=== PATIENT | female | born 1955 | race Caucasian/White ===

== ENCOUNTER → 2017-03-29 | Outpatient (CLI) | payer OTHER | LOC: CIMAGING 09:33 | DX: Z12.31 Encounter for screening mammogram for malignant neoplasm of breast (principal) | CPT/HCPCS: G0202 ==

== ENCOUNTER → 2017-05-21 | Outpatient (CLI) | payer OTHER | LOC: FIMAGING 11:01 | PROVIDERS: ATTEND Family Medicine | DX: Z13.820 Encounter for screening for osteoporosis (principal); Z82.62 Family history of osteoporosis ==

== ENCOUNTER → 2018-05-30 | Outpatient (CLI) | payer OTHER | LOC: CIMAGING 14:30 | PROVIDERS: ATTEND Family Medicine | DX: Z12.31 Encounter for screening mammogram for malignant neoplasm of breast (principal) ==

== ENCOUNTER 2019-04-03 00:28 | Inpatient (IN) | payer OTHER ==
[2019-04-03] MEDS ORDERED: NS 1,000 ML IV ONE ×2 (01:05→04:01)
--- NOTE | 2019-04-03 01:08 | EDPHY ---
H & P Stated Complaint: abd pain, UTI s/sx, nausea x3 days Time Seen by Provider: 04/03/19 00:34 HPI/ROS: HPI The patient presents with nausea vomiting fever and chills. Symptoms began about 7 days ago with UTI type symptoms. Patient had painful urination and frequent urination. She took azo [id number] for this. However over the last 3 days she has developed severe nausea, fever, shaking chills with occasional vomiting. She does have pains in her back as well bilaterally. She was seen at [facility] earlier today where she was diagnosed with pyelonephritis, given IV fluids, Zofran, 1 g ceftriaxone with improvement in her symptoms. However, she returned home and had ongoing nausea, vomiting, general malaise so comes to the emergency department. She has a history of frequent urinary tract infection in her younger years. She has been feeling fatigued lately though attributes this to change in her hormone medication with her insurance changing.. REVIEW OF SYSTEMS 10 systems were reviewed and negative with the exception of the elements mentioned in the history of present illness. PMHx: Hypothyroidism, hypertension Soc Hx: Here with her partner PHYSICAL General Appearance: Alert, uncomfortable appearing Eyes: Pupils equal and round no pallor or injection ENT, Mouth: Mucous membranes moist Respiratory: There are no retractions, lungs are clear to auscultation Cardiovascular: Regular rate and rhythm Gastrointestinal: Abdomen is soft and non-tender, no masses, bowel sounds normal , no CVA tenderness Neurological: A&O, moves all extremities Skin: Warm and dry, no rashes Musculoskeletal: Neck is supple non tender Extremities: symmetrical, full range of motion Psychiatric: Patient is oriented X 3, there is no agitation Source: Patient Exam Limitations: No limitations - Personal History Current Tetanus/Diphtheria Vaccine: Yes - Medical/Surgical History Hx Asthma: No Hx Chronic Respiratory Disease: No Hx Diabetes: No Hx Cardiac Disease: No Hx Renal Disease: No Hx Cirrhosis: No Hx Alcoholism: No Hx HIV/AIDS: No Hx Splenectomy or Spleen Trauma: No Other PMH: hypothyroid, HTN - Social History Smoking Status: Never smoked Constitutional: Initial Vital Signs Temperature (C) 38.4 C H 04/03/19 00:28 Heart Rate 95 04/03/19 00:28 Respiratory Rate 20 04/03/19 00:28 Blood Pressure 128/60 H 04/03/19 00:28 O2 Sat (%) 90 L 04/03/19 00:28 O2 Delivery Mode Nasal Cannula O2 (L/minute) 4 Allergies/Adverse Reactions: No Known Allergies Allergy (Unverified 04/03/19 00:31) Home Medications: Medication Instructions Recorded Levothyroxine 04/03/19 Triamterene 04/03/19 Medical Decision Making - Diagnostics Imaging Results: CT abdomen pelvis with IV contrast demonstrates austin nephric stranding seen involving the left kidney with heterogeneous enhancement of the upper pole, consider pyelonephritis, no hydronephrosis is seen, no stones are seen, bladder is decompressed with some circumferential wall thickening, consider cystitis, interpreted by direct Radiology. Imaging: I viewed and interpreted images myself Differential Diagnosis: 63-year-old female, diagnosed earlier today with pyelonephritis at urgent care, treated with ceftriaxone, fluids, Zofran now presents with nausea, vomiting, malaise, fevers. Suspect pyelonephritis, complicated because patient has had to return to the emergency department. Will obtain basic labs, give IV fluids, symptomatic relief. Patient was given IV fluids, Zofran. She was not given additional antibiotics as she had received ceftriaxone less than 12 hr prior to her time in the emergency department. She does have a leukocytosis with a left shift. Her UA demonstrated sterile pyuria, because of this CT scan of abdomen pelvis was obtained which did indicate left-sided pyelonephritis with no other intra- abdominal findings. Urine culture was sent. Case was discussed with Dr. Carter of the hospitalist service. As we plan to admit the patient given failed outpatient management of pyelonephritis. - Data Points Laboratory Results: Laboratory Results 04/03/19 01:25 04/03/19 01:25 04/03/19 04/03/19 04/03/19 02:35 01:25 01:25 WBC 12.90 10^3/uL H 10^3/uL (3.80-9.50) RBC 3.69 10^6/uL L 10^6/uL (4.18-5.33) Hgb 11.6 g/dL L g/dL (12.6-16.3) Hct 32.0 % L % (38.0-47.0) MCV 86.7 fL fL (81.5-99.8) MCH 31.4 pg pg (27.9-34.1) MCHC 36.3 g/dL g/dL (32.4-36.7) RDW 12.6 % % (11.5-15.2) Plt Count 161 10^3/uL 10^3/uL (150-400) MPV 9.7 fL fL (8.7-11.7) Neut % (Auto) Not Reported Lymph % (Auto) Not Reported [place] % (Auto) Not Reported Eos % (Auto) Not Reported Baso % (Auto) Not Reported Nucleat RBC Rel Count Not Reported Absolute Neuts (auto) Not Reported Absolute Lymphs (auto) Not Reported Absolute Monos (auto) Not Reported Absolute Eos (auto) Not Reported Absolute Basos (auto) Not Reported Absolute Nucleated RBC Not Reported Immature Gran % Not Reported Seg Neutrophils % 67.0 % % Band Neutrophils % 13.0 % % Lymphocytes % 11.0 % % Monocytes % 8.0 % % Eosinophils % 0.0 % % Basophils % 0.0 % % Metamyelocytes % 0.0 % % Myelocytes % 0.0 % % Promyelocytes % 1.0 % % Blast Cells % 0.0 % % Immature Gran # Not Reported Absolute Seg Neuts 8.64 10^3/uL H 10^3/uL (1.70-6.50) Absolute Band Neuts 1.68 10^3/uL H 10^3/uL (0.00-0.70) Absolute Lymphocytes 1.42 10^3/uL 10^3/uL (1.00-3.00) Absolute Monocytes 1.03 10^3/uL H 10^3/uL (0.30-0.80) Absolute Eosinophils 0.00 10^3/uL L 10^3/uL (0.03-0.40) Absolute Basophils 0.00 10^3/uL L 10^3/uL (0.02-0.10) Absolute Metamyelocyte 0.00 10^3/mL 10^3/mL (0.00-0.00) Absolute Myelocytes 0.00 10^3/mL 10^3/mL (0.00-0.00) Absolute Promyelocytes 0.13 10^3/uL H 10^3/uL (0.00-0.00) Absolute Plasma Cells 0.00 10^3/uL 10^3/uL (0.00-0.00) Nucleated RBCs 0 /100 WBC /100 WBC (0-0) Absolute Blast Cells 0.00 10^3/uL 10^3/uL (0.00-0.00) Plasma Cells % 0.0 % % Toxic Granulation PRESENT H Toxic Vacuolation PRESENT H Platelet Estimate ADEQUATE (ADEQ) Smear Review By Pending Sodium 135 mEq/L mEq/L (135-145) Potassium 3.3 mEq/L L mEq/L (3.5-5.2) Chloride 98 mEq/L mEq/L (97-110) Carbon Dioxide 27 mEq/l mEq/l (22-31) Anion Gap 10 mEq/L mEq/L (6-14) BUN 18 mg/dL mg/dL (7-23) Creatinine 0.8 mg/dL mg/dL (0.6-1.0) Estimated GFR > 60 Glucose 121 mg/dL H mg/dL (70-100) Calcium 8.2 mg/dL L mg/dL (8.5-10.4) Total Bilirubin 0.7 mg/dL mg/dL (0.1-1.4) AST 58 IU/L H IU/L (14-46) ALT 69 IU/L H IU/L (9-52) Alkaline Phosphatase 96 IU/L IU/L (38-126) Total Protein 5.9 g/dL L g/dL (6.3-8.2) Albumin 3.5 g/dL g/dL (3.5-5.0) Urine Color YELLOW Urine Appearance HAZY Urine pH 5.0 (5.0-7.5) Ur Specific [place] 1.025 (1.002-1.030) Urine Protein 2+ H (NEGATIVE) Urine Ketones TRACE H (NEGATIVE) Urine Blood 1+ H (NEGATIVE) Urine Nitrate NEGATIVE (NEGATIVE) Urine Bilirubin NEGATIVE (NEGATIVE) Urine Urobilinogen NEGATIVE EU EU (0.2-1.0) Ur Leukocyte Esterase 1+ H (NEGATIVE) Urine RBC 10-15 /hpf H /hpf (0-3) Urine WBC 50-182 /hpf H /hpf (0-3) Ur Epithelial Cells TRACE /lpf /lpf (NONE-1+) Urine Mucus TRACE /lpf /lpf (NONE-1+) Urine Glucose NEGATIVE (NEGATIVE) Medications Given: Potassium Chloride/Sodium Chloride (Ns W/ 20 Kcl/L) 1,000 mls @ 100 mls/hr IV CONT VIV Stop: 09/30/19 04:29 Last Admin: 04/03/19 05:41 Dose: 1,000 mls Discontinued Medications Sodium Chloride (Ns) 1,000 mls @ 0 mls/hr IV EDNOW ONE; Wide Open PRN Reason: Protocol Stop: 04/03/19 01:06 Last Admin: 04/03/19 01:26 Dose: 1,000 mls Sodium Chloride (Ns) 1,000 mls @ 0 mls/hr IV EDNOW ONE; Wide Open PRN Reason: Protocol Stop: 04/03/19 04:02 Last Admin: 04/03/19 04:15 Dose: 1,000 mls Ketorolac Tromethamine (Toradol) 15 mg IVP EDNOW ONE Stop: 04/03/19 01:22 Last Admin: 04/03/19 01:27 Dose: 15 mg Ondansetron HCl (Zofran) 4 mg IVP EDNOW ONE Stop: 04/03/19 01:22 Last Admin: 04/03/19 01:25 Dose: 4 mg Departure - Departure Disposition: [facility] In[facility] Acute Clinical Impression: Acute pyelonephritis Condition: Fair
[2019-04-03] MEDS ORDERED: KETOROLAC 15 MG/1 ML SDV IVP ONE (01:21)
[2019-04-03] MEDS ORDERED: ONDANSETRON 4 MG/2 ML VIAL IVP ONE (01:21)
[2019-04-03] MEDS ORDERED: ONDANSETRON 4 MG/2 ML VIAL ONE (01:21)
[2019-04-03 01:35] LABS: PLATELET COUNT 161 10^3/uL (150-400)
[2019-04-03] MEDS ORDERED: IOPAMIDOL (ISOVUE-300) 100 ML BTL ONE (03:54)
[2019-04-03] MEDS ORDERED: ONDANSETRON DISINTEGRATING 4 MG TAB PO PRN (04:25)
[2019-04-03] MEDS ORDERED: LORazepam 2 MG/ML INJ IVP PRN (04:25)
[2019-04-03] MEDS ORDERED: HYDROCODONE/APAP 5/325 TAB PO PRN (04:25)
[2019-04-03] MEDS ORDERED: ACETAMINOPHEN 650 MG SUPP PR PRN (04:25)
[2019-04-03] MEDS ORDERED: PROMETHAZINE HCL 25 MG/ML INJ IVP PRN (04:25)
[2019-04-03] MEDS ORDERED: ONDANSETRON 4 MG/2 ML VIAL IVP PRN ×2 (04:25→14:57)
--- NOTE | 2019-04-03 05:07 | PDGENHP ---
History and Physical - Chief Complaint Fevers, chills, nausea vomiting, abdominal pain and back pain - History of Present Illness Source-patient provides history appears reliable. Her is bedside supplements details. EMR was reviewed and case discussed with ED provider. HPI-this is a pleasant 63-year-old female with past medical history significant for hypothyroidism, menopausal flushing, HTN, reported history of UTIs remotely who presents emergency department today with complaints of progressively worsening nausea vomiting chills and fever. Patient reports that she developed symptoms of UTI with dysuria occasional hematuria and frequency a week ago. She had been taking azo [id number] for her symptom control. She had been traveling in [facility] and had not yet followed up with primary care provider. Yesterday she went to urgent care near and was diagnosed with pyelonephritis. She reports that laboratory studies in urine was reported to be consistent with UTI. She and were advised that the culture with take 3 days to resolve. She was given a dose of IV Rocephin at the urgent care facility. She is also given a prescription for Levaquin to start later this morning. Patient returned home she was feeling actually quite well at time of discharge however she has began to have worsening abdominal pain distension midline mostly upper abdomen. She also developed some nausea and vomiting. She denies any hematemesis and reports that was more bile. She also reports some diarrhea type symptoms without any melena or hematochezia. No reported sick contacts. Patient also notes she has been experiencing fatigue for the past 1 month since she tapered off of her hormone replacement therapy. Additionally since she has been ill last few days patient reports she has not been sleeping very well. She also notes left-sided back pain that is mild to moderate in severity worse with movement. Patient reports that she previously had a history of recurrent UTIs in her youth. Review of EMR shows that patient last had urine cultures in March of 2018 that showed 50-60 K CFU of non lactose fermenting negative Gram rods. These were not sent for additional identification for sensitivities. History Information - Allergies/Home Medication List Allergies/Adverse Reactions: No Known Allergies Allergy (Unverified 04/03/19 00:31) Home Medications: Levothyroxine 04/03/19 [Last Taken Unknown] Triamterene 04/03/19 [Last Taken Unknown] I have personally reviewed and updated: family history, medical history, social history, surgical history - Past Medical History hypertension Additional medical history: HTN, hypothyroidism, recurrent UTIs and youth. Patient also reports that between the age of 4 and 10 she was followed by Urology and had her "bladder stretched" - Surgical History Additional surgical history: Tipped uterus repair, x2, knee arthroscopy for meniscal repair, bladder surgery for "stretching" age 4 - Family History Additional family history: Negative family history for any urinary or kidney dysfunction. - Social History Smoking Status: Never smoked Alcohol Use: None Drug Use: None Additional social history: Patient is . is at bedside. Cor status-full. Patient has a living will. Review of Systems Review of Systems: ROS: 10pt was reviewed & negative except for what was stated in HPI & below Constitutional: Reports: chills, fever, malaise EENMT: Reports: no symptoms Cardiac: Reports: no symptoms Respiratory: Reports: no symptoms Gastrointestinal: Reports: vomitting, abdominal pain, abdominal distention, diarrhea, nausea. Denies: black stools, rectal bleeding Genitourinary: Reports: dysuria (Resolved since 2 days ago), flank pain (Left flank pain), frequency, hematuria (Occasional) Muscolosketal: Reports: no symptoms Skin: Reports: no symptoms Neurological: Reports: no symptoms Hematologic/Lymphatic: Reports: no symptoms Physical Exam Physical Exam: Selected Entries 04/03/19 00:28 Blood Pressure Automatic Method Heart Rate 95 Respiratory 20 Rate O2 Sat (%) 90 L Temperature (C) 38.4 C H Blood Pressure 128/60 H Mean Arterial 82 Pressure (MAP) O2 Delivery Room Air Mode Temperature Oral Source Temp Pulse Resp BP Pulse Ox 36.9 C 61 16 104/51 L 96 04/03/19 04:47 04/03/19 04:15 04/03/19 04:15 04/03/19 04:15 04/03/19 04:15 O2 (L/minute) 2 Constitutional: no apparent distress, appears nourished, uncomfortable, other ( NAD. Patient lays quietly in bed does appear fatigued and acutely ill but nontoxic. at bedside.) Eyes: PERRL (Decreased reactivity to light bilaterally and symmetric.), anicteric sclera, EOMI, No scleral injection Ears, Nose, Mouth, Throat: dry mucous membranes, other (No nasal discharge.), No poor dentition Cardiovascular: regular rate and rhythym (Extra regular beat noted when patient was sitting up. Resolved with lying down.), no murmur, rub, or gallop, No pulses symmetric bilaterally, No tachycardia, No edema Peripheral Pulses: 2+: dorsalis-pedis (R), dorsalis-pedis (L) Respiratory: no respiratory distress, no rales or rhonchi, clear to auscultation , other, No respiratory distress Gastrointestinal: normoactive bowel sounds, no palpable masses, distension, other (Abdomen is soft and distended. Patient with some mild tenderness with palpation to the midline abdomen. No rebound or guarding.), No bella's sign, No guarding, No rebound Genitourinary: no bladder tenderness, No dior in urethra Skin: warm, normal color, no rashes or abrasions Musculoskeletal: full muscle strength, no muscle tenderness, other (Patient sits up independently. Moves all extremities.) Neurologic: AAOx3, sensation intact bilaterally, other (Grossly nonfocal exam.) , No facial droop Psychiatric: interacting appropriately, not anxious, not encephalopathic, thought process linear, other (Thought process content and questions appropriate. Patient is pleasant and cooperative.) Lab Data & Imaging Review 04/03/19 01:25 04/03/19 01:25 WBC 12.90 10^3/uL (3.80-9.50) H 04/03/19 01:25 RBC 3.69 10^6/uL (4.18-5.33) L 04/03/19 01:25 Hgb 11.6 g/dL (12.6-16.3) L 04/03/19 01:25 Hct 32.0 % (38.0-47.0) L 04/03/19 01:25 MCV 86.7 fL (81.5-99.8) 04/03/19 01:25 MCH 31.4 pg (27.9-34.1) 04/03/19 01:25 MCHC 36.3 g/dL (32.4-36.7) 04/03/19 01:25 RDW 12.6 % (11.5-15.2) 04/03/19 01:25 Plt Count 161 10^3/uL (150-400) 04/03/19 01:25 MPV 9.7 fL (8.7-11.7) 04/03/19 01:25 Neut % (Auto) Not Reported 04/03/19 01:25 Lymph % (Auto) Not Reported 04/03/19 01:25 [place] % (Auto) Not Reported 04/03/19 01:25 Eos % (Auto) Not Reported 04/03/19 01:25 Baso % (Auto) Not Reported 04/03/19 01:25 Nucleat RBC Rel Count Not Reported 04/03/19 01:25 Absolute Neuts (auto) Not Reported 04/03/19 01:25 Absolute Lymphs (auto) Not Reported 04/03/19 01:25 Absolute Monos (auto) Not Reported 04/03/19 01:25 Absolute Eos (auto) Not Reported 04/03/19 01:25 Absolute Basos (auto) Not Reported 04/03/19 01:25 Absolute Nucleated RBC Not Reported 04/03/19 01:25 Immature Gran % Not Reported 04/03/19 01:25 Seg Neutrophils % 67.0 % 04/03/19 01:25 Band Neutrophils % 13.0 % 04/03/19 01:25 Lymphocytes % 11.0 % 04/03/19 01:25 Monocytes % 8.0 % 04/03/19 01:25 Eosinophils % 0.0 % 04/03/19 01:25 Basophils % 0.0 % 04/03/19 01:25 Metamyelocytes % 0.0 % 04/03/19 01:25 Myelocytes % 0.0 % 04/03/19 01:25 Promyelocytes % 1.0 % 04/03/19 01:25 Blast Cells % 0.0 % 04/03/19 01:25 Immature Gran # Not Reported 04/03/19 01:25 Absolute Seg Neuts 8.64 10^3/uL (1.70-6.50) H 04/03/19 01:25 Absolute Band Neuts 1.68 10^3/uL (0.00-0.70) H 04/03/19 01:25 Absolute Lymphocytes 1.42 10^3/uL (1.00-3.00) 04/03/19 01:25 Absolute Monocytes 1.03 10^3/uL (0.30-0.80) H 04/03/19 01:25 Absolute Eosinophils 0.00 10^3/uL (0.03-0.40) L 04/03/19 01:25 Absolute Basophils 0.00 10^3/uL (0.02-0.10) L 04/03/19 01:25 Absolute Metamyelocyte 0.00 10^3/mL (0.00-0.00) 04/03/19 01:25 Absolute Myelocytes 0.00 10^3/mL (0.00-0.00) 04/03/19 01:25 Absolute Promyelocytes 0.13 10^3/uL (0.00-0.00) H 04/03/19 01:25 Absolute Plasma Cells 0.00 10^3/uL (0.00-0.00) 04/03/19 01:25 Nucleated RBCs 0 /100 WBC (0-0) 04/03/19 01:25 Absolute Blast Cells 0.00 10^3/uL (0.00-0.00) 04/03/19 01:25 Plasma Cells % 0.0 % 04/03/19 01:25 Toxic Granulation PRESENT H 04/03/19 01:25 Toxic Vacuolation PRESENT H 04/03/19 01:25 Platelet Estimate ADEQUATE (ADEQ) 04/03/19 01:25 VBG Lactic Acid 0.8 mmol/L (0.7-2.1) 04/03/19 04:15 Sodium 135 mEq/L (135-145) 04/03/19 01:25 Potassium 3.3 mEq/L (3.5-5.2) L 04/03/19 01:25 Chloride 98 mEq/L (97-110) 04/03/19 01:25 Carbon Dioxide 27 mEq/l (22-31) 04/03/19 01:25 Anion Gap 10 mEq/L (6-14) 04/03/19 01:25 BUN 18 mg/dL (7-23) 04/03/19 01:25 Creatinine 0.8 mg/dL (0.6-1.0) 04/03/19 01:25 Estimated GFR > 60 04/03/19 01:25 Glucose 121 mg/dL (70-100) H 04/03/19 01:25 Calcium 8.2 mg/dL (8.5-10.4) L 04/03/19 01:25 Total Bilirubin 0.7 mg/dL (0.1-1.4) 04/03/19 01:25 AST 58 IU/L (14-46) H 04/03/19 01:25 ALT 69 IU/L (9-52) H 04/03/19 01:25 Alkaline Phosphatase 96 IU/L (38-126) 04/03/19 01:25 Total Protein 5.9 g/dL (6.3-8.2) L 04/03/19 01:25 Albumin 3.5 g/dL (3.5-5.0) 04/03/19 01:25 Urine Color YELLOW 04/03/19 02:35 Urine Appearance HAZY 04/03/19 02:35 Urine pH 5.0 (5.0-7.5) 04/03/19 02:35 Ur Specific [place] 1.025 (1.002-1.030) 04/03/19 02:35 Urine Protein 2+ (NEGATIVE) H 04/03/19 02:35 Urine Ketones TRACE (NEGATIVE) H 04/03/19 02:35 Urine Blood 1+ (NEGATIVE) H 04/03/19 02:35 Urine Nitrate NEGATIVE (NEGATIVE) 04/03/19 02:35 Urine Bilirubin NEGATIVE (NEGATIVE) 04/03/19 02:35 Urine Urobilinogen NEGATIVE EU (0.2-1.0) 04/03/19 02:35 Ur Leukocyte Esterase 1+ (NEGATIVE) H 04/03/19 02:35 Urine RBC 10-15 /hpf (0-3) H 04/03/19 02:35 Urine WBC 50-182 /hpf (0-3) H 04/03/19 02:35 Ur Epithelial Cells TRACE /lpf (NONE-1+) 04/03/19 02:35 Urine Mucus TRACE /lpf (NONE-1+) 04/03/19 02:35 Urine Glucose NEGATIVE (NEGATIVE) 04/03/19 02:35 Imaging Review: Direct radiology report and CT reviewed - consistent with pyelonephritis. There is small amount of perinephric stranding around the left kidney. Small amount of free fluid in pelvis. Assessment & Plan Assessment: Pleasant 63-year-old female with history HTN, hypothyroidism, post menopausal flushing who presents emergency department with 1 week complaint of urinary symptoms now with left flank pain, fevers, chills and intractable nausea and vomiting. #Pyelonephritis - perinephric stranding noted on CT. Patient continues to have a mild flank pain. Her nausea vomiting improved with treatment. She does still appear quite dehydrated continue IV fluids. She received the Rocephin approximately 5:00 p.m. Should be adequate for 24 hr of coverage pending urine culture and sensitivities. Patient's current UA shows pyuria without any nitrites or leuk esterase or bacteria on microscopy which could be due to recent administration of IV antibiotics. Review of patient's previously available urinalyses and culture revealed that there is 1 test from 03/2018 that shows gram-negative alfonzo non lactose fermenters. At this point I do not feel need to be initiated additional antibiotic but consider Levaquin if patient 's status should not improved. Her main complaint at this time is the nausea vomiting as she notes that her flank pain and urinary symptoms are improving. Urgent care laboratory studies have been sent to [facility] feel a did laboratory and are listed as pending under 04/02/2019 lab visit. #Sepsis without organ dysfunction - patient with fevers and leukocytosis. Her lactate is within normal limits. Urine cultures are pending. Will try to follow up with [facility] as well and see if any preliminary reports are available. Nausea vomiting non intractable # on intractable nausea vomiting - patient has not yet been able to tolerate any oral intake. She did respond well to IV Zofran. Phenergan and Ativan will be available as well as second-line agents. Encouraged advancing diet when she is able to tolerate. # hypokalemia - likely secondary to GI losses in setting of nausea vomiting and diarrhea. The will replace IV fluids with potassium # transaminitis - mildly elevated LFTs. Could be slightly elevated in setting of acute illness vs active vomiting or increasing his stress in setting of early sepsis. Repeat LFTs tomorrow morning. # anemia - does not appear to be a chronic issue based on available historical labs. Could be related to acute illness. No evidence of active bleeding at this time of her patient did report some mild hematuria. Plan to repeat CBC tomorrow morning. Chronic medical issues # benign essential HTN - blood pressures at this time are low normal. Patient reports that she has not taken her triamterene in several days that she has had nausea. Will hold further antihypertensives at this time monitor closely with IV fluid replacement. # hypothyroidism - continue levothyroxine replacement. Patient has been reporting increased fatigue and malaise for the past 1 month since she transitioned off of her hormone replacement. Encouraged patient to follow up with her primary care provider after discharge. Additionally also watching H&H. FEN - IV fluid replacement while patient's nausea comes under control. Add replacement potassium as noted above monitor and additional replacement p.r.n. Clear liquid diet will be ordered in advance as tolerated. PPX-SCDs. Holding anticoagulation in setting of new anemia and complaint of hematuria. Cor status-full. Disposition-patient admitted to inpatient status [facility] the [facility] floor. Anticipate greater than 2 midnight stay given the severity of her symptoms and need to wait for culture sensitivities until her symptoms are improved and patient can appropriately tolerate oral antibiotics.
[2019-04-03] MEDS: NS W/ 20 KCl/L 1,000 ML IV SCH ×2 (05:41→16:24)
[2019-04-03] MEDS ORDERED: PHENYLEPHRINE/SHK LV/MO/PET,WH 1 APP/GM OINT PR PRN (08:45)
--- NOTE | 2019-04-03 09:30 | ASMTCASEMG ---
Living Arrangements What is your living Answers: With Spouse arrangement? Who do you live with? Type Of Residence What kind of residence do Answers: House you live in? Discharge Plan Comments Coordination Status Comments Notes: Patient is a 63yo female who is being admitted for pyelonephritis, sepsis without organ dysfunction, nausea and vomiting,hypokalemia, transaminitis.No therapies ordered at this time. D/C plan TBD. CM following. Date Signed: 04/03/2019 09:29 AM Electronically Signed By:Isela Santiago LCSW
--- NOTE | 2019-04-03 09:55 | HOSPPROG ---
Hospitalist Progress Note Assessment/Plan: DIAGNOSES: * Acute epigastric and right flank pain with fever -pyuria and history of pyelonephritis suggest that that may be the cause, however her pain is right-sided and right kidney looks fine on CT with very mild left-sided changes -given location of pain in unexplained elevated hepatic transaminases would have some possible suspicion for biliary causes well; on CT the gallbladder is distended without definite thickening or stones (does have occasional elevation of transaminases but most of her blood test showed normal transaminases in the past * Patient does not meet diagnostic criteria for sepsis * Hypokalemia * Elevated hepatic transaminases, uncertain etiology of that * Anemia normocytic uncertain etiology of that, potentially related to inflammatory PLANS: * Continue empiric antibiotics, follow cultures closely * Symptomatic management of pain and nausea * Gallbladder ultrasound, consider other assessment for elevation of transaminases as needed * Recheck hepatic transaminases in the morning Seen by me on hospitalist rounds as well as multidisciplinary rounds Greater than 35 min bedside by me today in addition to the time spent earlier by Dr. Robles on her admission activities SUBJECTIVE: Still with epigastric and right flank pain and a lot of nausea, antiemetics only given partial relief so far Having rigors right now Has not yet vomited this morning OBJECTIVE Vitals reviewed: Highest temperature this morning 38.8, stable blood pressure pulse respiration Exam: alert oriented looks min quite uncomfortable from pain and nausea skin warm dry color ok resps not labored lungs clear BSs heart regular abd soft, nondistended, moderately tender right upper quadrant and mildly tender right flank without rebound, bowel sounds present limbs warm, no edema iv site ok Lab data: In the ER today there is mild elevation of panic transaminases with normal bilirubin Mild normocytic anemia I reviewed her CT scan images of the abdomen from earlier this morning, there is some mild austin nephric fat stranding on the left and 1 small area of cortical hypodensity typical of pyelonephritis. There is also some mild pericystic fat stranding Objective: Vital Signs Temp Pulse Resp BP Pulse Ox 36.9 C 60 16 92/58 L 93 04/03/19 08:09 04/03/19 08:09 04/03/19 08:09 04/03/19 08:09 04/03/19 08:09 04/02/19 04/03/19 04/04/19 06:59 06:59 06:59 Intake Total 50 Balance 50 ICD10 Worksheet Patient Problems: Problems Problem Status Onset Acute pyelonephritis Acute
--- NOTE | 2019-04-03 10:13 | PDMN ---
Medical Necessity Medical necessity: Pt meets inpt criteria per MD order and MCG M-300, Urinary Tract Infection (UTI), inpt indicated for: parenteral antibiotics needed as patient cannot take oral medication due to N/V, failed outpt tx w/ABX's. 63 y/o w/recent UTI, treated outpt w/oral ABX's and then seen again at Urgent care, diagnosed w/pyelonephritis- treated w/IV Rocephin and dc'd on oral ABX's and now presenting w/worsening abd pain, N/V, unable to tolerate oral intake, chills , and fever, admitted w/pyelonephritis w/perinephric stranding on CT, sepsis ( fever, leukocytosis, and 92/58 this AM), hypokalemia, transaminitis. IV antiemetics, IV ABX's, IVF, anticipate>2MN given severity of symptoms and need to wait for cx sensitivities.
[2019-04-03] MEDS: ACETAMINOPHEN 325 MG TAB PO PRN ×2 (10:14→18:36)
[2019-04-03] MEDS: SIMETHICONE 80 MG TAB CHEW PO PRN ×2 (10:23→16:36)
[2019-04-04] MEDS: NS W/ 20 KCl/L 1,000 ML IV SCH (03:55)
[2019-04-04 04:34] LABS: PLATELET COUNT 163 10^3/uL (150-400)
[2019-04-04] MEDS: ACETAMINOPHEN 325 MG TAB PO PRN ×2 (12:24→20:12)
--- NOTE | 2019-04-04 12:41 | HOSPPROG ---
Hospitalist Progress Note Assessment/Plan: DIAGNOSES: * Acute pyelonephritis with history of prior episodes of pyelonephritis * New onset diarrhea with abdominal bloating today, concern for antibiotic induced abnormality including direct bowel side effect versus C diff * Patient does not meet diagnostic criteria for sepsis * Hypokalemia * Hepatic steatosis is likely cause of Elevated hepatic transaminases * Anemia normocytic uncertain etiology of that, potentially related to inflammatory changes from infection PLANS: * Continue empiric antibiotics, follow cultures closely * Check stool for C diff * Symptomatic management of pain and nausea * Brief review of hepatic steatosis with her today, she will need further education regarding that and set up for follow-up with primary care Seen by me on hospitalist rounds as well as multidisciplinary rounds SUBJECTIVE: Today complains of significant increase in abdominal distension/bloating with a tight sensation that is fairly uncomfortable, and started having diarrhea last night with a couple loose stool watery stools last night and 4 watery stools today. Her flank pain on the right is somewhat better but has some right upper quadrant discomfort today OBJECTIVE Vitals reviewed: Fevers resolving otherwise stable blood pressures pulse respirations Exam: alert oriented looks a bit uncomfortable skin warm dry color ok resps not labored lungs clear BSs heart regular abd soft, notably more distended, mildly tender right upper quadrant with some diffuse tenderness, no rebound, bowel are sounds present limbs warm, no edema iv site ok Lab data: WBC still high at 10,000 thousand, hemoglobin at 10 stable platelets Potassium normalized, CO2 down from 27 to 21, AST and ALT both improved bilirubin normal Microbiology: Cultures all negative to date I reviewed her CT scan images of the abdomen from earlier this morning, there is some mild austin nephric fat stranding on the left and 1 small area of cortical hypodensity typical of pyelonephritis. There is also some mild pericystic fat stranding I reviewed images and radiology report from abdominal ultrasound which shows no abnormalities of the gallbladder or biliary system but hepatic steatosis is present Objective: Vital Signs Temp Pulse Resp BP Pulse Ox 37.6 C 65 16 120/63 92 04/04/19 11:30 04/04/19 11:30 04/04/19 11:30 04/04/19 11:30 04/04/19 11:30 Laboratory Results 04/04/19 04:18 04/04/19 04:18 04/03/19 04/04/19 04/05/19 06:59 06:59 06:59 Intake Total 50 2390 Balance 50 2390 - Time Spent With Patient Time Spent with Patient: greater than 35 minutes Time Spent with Patient: Greater than 35 minutes spent on this patients care, greater than 50% of time spent counseling, educating, and coordinating care regarding the above mentioned plan. ICD10 Worksheet Patient Problems: Problems Problem Status Onset Acute pyelonephritis Acute
[2019-04-04] MEDS: PANTOPRAZOLE SODIUM 40 MG TAB PO SCH (20:12)
[2019-04-05] MEDS: ACETAMINOPHEN 325 MG TAB PO PRN ×2 (03:06→20:16)
[2019-04-05] MEDS: PANTOPRAZOLE SODIUM 40 MG TAB PO SCH ×2 (08:22→20:16)
[2019-04-05] MEDS: LEVOTHYROXINE 50 MCG TAB PO SCH (08:22)
--- NOTE | 2019-04-05 13:51 | ASMTCMCOM ---
RIN Note CM Note Notes: CM met with pt in her room this morning. Adelso Hernandez [phone] was present. She is normally independent at home. Per Dr. Sanchez, he will continue to monitor her hematocrit and hemoglobin and results of hemoccult. RIN D/C plan: Independent to home Date Signed: 04/05/2019 01:50 PM Electronically Signed By:Becky Matta
--- NOTE | 2019-04-05 15:50 | HOSPPROG ---
Hospitalist Progress Note Assessment/Plan: DIAGNOSES: * Acute pyelonephritis with history of prior episodes of pyelonephritis * Upper GI bleed: Melenic stools, abdominal bloating and epigastric discomfort, anemia, inpatient who uses 2 Advil at bedtime most nights for greater than 1 month; NSAID gastropathy likely * Patient does not meet diagnostic criteria for sepsis * Hypokalemia * Hepatic steatosis is likely cause of Elevated hepatic transaminases * Anemia normocytic uncertain etiology of that, potentially related to inflammatory changes from infection PLANS: * Continue empiric antibiotics for UTI, follow cultures closely * Continue Protonix * Follow for any further signs of bleeding * I have contacted Dr. Ethan Bond and he will plan on EGD tomorrow morning * Symptomatic management of pain and nausea * Brief review of hepatic steatosis with her today, she will need further education regarding that and set up for follow-up with primary care Seen by me on hospitalist rounds as well as multidisciplinary rounds SUBJECTIVE: Feels slightly better today but still having epigastric distension and bloated sensation with some mild painful discomfort, unable to eat due to the symptoms She again has passed some melanic stool today No further diarrhea OBJECTIVE Vitals reviewed: Minimal temperature elevations otherwise stable vital signs Exam: alert oriented relaxed skin warm dry color ok resps not labored lungs clear BSs heart regular abd soft, remains distended with some epigastric tenderness, no rebound or mass limbs warm, no edema iv site ok Lab data: WBC still high at 10,000 thousand, hemoglobin stable at 10 Potassium normalized, CO2 down from 27 to 21, AST and ALT both improved bilirubin normal Microbiology: Urine culture negative GI pathogen panel negative Objective: Vital Signs Temp Pulse Resp BP Pulse Ox 36.9 C 71 20 121/63 H 85 L 04/05/19 12:04 04/05/19 12:04 04/05/19 12:04 04/05/19 12:04 04/05/19 12:04 Microbiology 04/04/19 13:45 Gastrointestinal Tract Panel (PCR) - Final Stool No Organism Detected By Pcr Laboratory Results 04/05/19 04:14 04/04/19 04:18 04/04/19 04/05/19 04/06/19 06:59 06:59 06:59 Intake Total 2390 200 Output Total 200 Balance 2390 200 -200 - Time Spent With Patient Time Spent with Patient: greater than 35 minutes Time Spent with Patient: Greater than 35 minutes spent on this patients care, greater than 50% of time spent counseling, educating, and coordinating care regarding the above mentioned plan. ICD10 Worksheet Patient Problems: Problems Problem Status Onset Acute pyelonephritis Acute
[2019-04-06] MEDS: LEVOTHYROXINE 50 MCG TAB PO SCH (05:01)
[2019-04-06] MEDS: PANTOPRAZOLE SODIUM 40 MG TAB PO SCH (08:40)
--- NOTE | 2019-04-06 09:11 | GCON ---
[f rep st] CONSULTATION DATE OF CONSULTATION: 04/06/2019 REQUESTING PROVIDER: Brendan Sanchez. REASON FOR CONSULTATION: Melena. Dear Dr. Sanchez: Thank you very kindly for asking me to evaluate the patient in consultation for melena. She is a chasidy y pleasant 63-year-old female who has been having dark stools for a few days. She recently returned from [facility], where her son was accepted to the [facility]. She felt kind of ill on the t rip with initially dysuria and some mild flank pain. When she returned home, as she was not feeling any better, she went to the urgent care, and they diagnosed her with a urinary tract infection and regla lemus pyelonephritis, gave her antibiotics in the urgent care and discharged with antibiotics. She con tinued to take some ibuprofen-type medication for the next few days due to her feeling poorly, but th en was significantly fatigued and admitted to the hospital for worsening symptoms. She was found to be anemic with a hematocrit of 32 and today 29.4. She has continued to have dark bowel movements, bu t the last one was yesterday. She denies any hematemesis. She does have some intermittent solid cuauhtemoc d dysphagia, which is somewhat more chronic and not progressive. She denies any hematochezia or bradford ge in bowel habits. She has had a colonoscopy 3 years ago and had some colon polyps. She has never had a prior gastrointestinal bleed. She does not drink alcohol. She is on no other anticoagulation. I am asked to assist for further evaluation and management. PAST MEDICAL HISTORY: Significant for recurrent urinary tract infections. She has had a history of a small bladder with a history of bladder distentions as a child, hypothyroidism, hypertension. PAST SURGICAL HISTORY: , meniscal arthroscopy, bladder stretching, some sort of gynecologic uterine repair. FAMILY HISTORY: Negative for gastric cancer, reflux, or peptic ulcer disease. MEDICATIONS: On admission were levothyroxine, triamterene, and the recent antibiotic. She does not remember the name. She was taken from the urgent care. SOCIAL HISTORY: She is a health and physical education teacher. Works at the [employer]. She is . She has 2 children. She lives in [place]. No tobacco. No alcohol. No substance abuse history. REVIEW OF SYSTEMS: A 10-point review of systems is otherwise negative other than what is in the hist ory of present illness. ALLERGIES: None known. PHYSICAL EXAM: VITAL SIGNS: Blood pressure is 113/56 with a heart rate of 55, respirations are 16, oxygenation is 94% on 2 L nasal cannula. T-max is 37.7 with a T current of 36.9. GENERAL: Healthy- appearing female in no acute distress. Alert and able to provide her own history. HEENT: Normoceph alic, atraumatic. Sclerae anicteric. Oropharynx clear. NECK: Supple. PULMONARY: Clear to auscultation bilaterally. CARDIOVASCULAR: Regular rate and rhythm without murmur, rub, or gallop. GI: Abdomen is soft, nonte nder, nondistended. There is some slight central tympany. No rebound, no guarding. No ascites. No abdominal bruit. No organomegaly. MUSCULOSKELETAL: No joint deformity, swelling, or warmth. No C VA tenderness. DERMATOLOGIC: Skin is without jaundice, rash, or lesion. No pedal edema. NEURO: Alert to person, place, and time. Speech and affect are normal. Motor is nonfocal. DIAGNOSTIC DATA: Database includes the following: White blood count was 12.9 with an initial hemato crit on admission on April 03. Platelets are 161. Today's hematocrit is 29.4. Sodium 137, po tassium 3.9, chloride 108, bicarbonate 21, BUN 18, creatinine 0.8. AST is 45. ALT is elevated at 68 . Total bilirubin is 0.3. Alkaline phosphatase is 88. Imaging includes a CT scan of the abdomen and pelvis performed on admission on April 03, 2019, which sh owed possible left urinary tract infection due to perinephric stranding with periureteral retroperito juliocesar stranding. No evidence of ureterolithiasis. No other acute process. There is a uterine leiomy omata (fibroid). IMPRESSION: 1. Melena. 2. Anemia, likely acute on chronic. It sounds like she has been fatigued for several months, and th is has been worsening lately. She does have a recent nonsteroidal anti-inflammatory drugs use histor y to treat some symptoms related to her urinary tract infection. 3. Pyelonephritis. 4. Fever. RECOMMENDATIONS: 1. IV Protonix twice daily should be sufficient. 2. Withhold all NSAIDs. 3. NPO. 4. Upper endoscopy to evaluate her melena and anemia. 5. If her endoscopy is unremarkable to exclude source, then a colonoscopy can be considered, althoug h I might give her a day or 2 to help further treat the pyelonephritis before doing this. 6. We will discuss management planning after her endoscopy, which we will perform today. /[id number]/MODL
[2019-04-06] MEDS ORDERED: LR 1,000 ML IV ONE (10:29)
--- NOTE | 2019-04-06 10:52 | PDANEPAE ---
ANE Past Medical History - Cardiovascular History Hx Hypertension: No Hx Arrhythmias: No Hx Chest Pain: No Hx Coronary Artery / Peripheral Vascular Disease: No Hx CHF / Valvular Disease: No Hx Palpitations: No - Pulmonary History Hx COPD: No Hx Asthma/Reactive Airway Disease: No Hx Recent Upper Respiratory Infection: No Hx Oxygen in Use at Home: No Hx Sleep Apnea: No Sleep Apnea Screening Result - Last Documented: Positive - Endocrine History Hx Diabetes: No Hypothyroid: Yes Hyperthyroid: No Obesity: moderate - Chronic Pain History Chronic Pain: No ANE Review of Systems Review of Systems: ANE Patient History - Allergies Allergies/Adverse Reactions: No Known Allergies Allergy (Unverified 04/03/19 00:31) - Home Medications Home Medications: Cholecalciferol Vit D3 [Vitamin D3 (*)] 1,000 units PO DAILY 04/03/19 [Last Taken Unknown] Cyanocobalamin [Vitamin B12 (*)] 1,000 mcg PO DAILY 04/03/19 [Last Taken Unknown ] Ibuprofen [Motrin (*)] 400 mg PO HS PRN 04/03/19 [Last Taken 04/01/19] Levothyroxine [Synthroid 50 mcg (*)] 50 mcg PO DAILY06 04/03/19 [Last Taken 09/09] [place]-3 Fatty Acids [Fish Oil 1000 mg (*)] 1,000 mg PO DAILY 04/03/19 [Last Taken Unknown] Triamterene/Hctz 37.5/25 [Dyazide 37.5/25 (*)] 1 each PO DAILY 04/03/19 [Last Taken 03/31/19] - NPO status NPO Since - Liquids (Date): 04/06/19 NPO Since - Liquids (Time): 00:01 NPO Since - Solids (Date): 04/06/19 NPO Since - Solids (Time): 00:01 - Smoking Hx Smoking Status: Never smoked - Alcohol Use Alcohol Use: None ANE Labs/Vital Signs - Labs Result Diagrams: 04/05/19 04:14 04/04/19 04:18 - Vital Signs Blood Pressure: 139/90 Heart Rate: 55 Respiratory Rate: 16 O2 Sat (%): 91 Height: 152.4 cm Weight: 70.3 kg ANE Physical Exam - Airway Neck exam: decreased ROM Mallampati Score: Class 2 Mouth exam: normal dental/mouth exam - Pulmonary Pulmonary: no respiratory distress - Cardiovascular Cardiovascular: regular rate and rhythym - ASA Status ASA Status: II ANE Anesthesia Plan Anesthesia Plan: GA with mask Total IV Anesthesia: Yes
[2019-04-06] MEDS ORDERED: PROPOFOL/EMULSION 500 MG/50 ML BOTTLE IV ONE (11:17)
[2019-04-06] MEDS ORDERED: LIDOCAINE 2% 2 ML INJ ONE (11:17)
[2019-04-06] MEDS ORDERED: ALBUTEROL 3 ML DEYVIAL ONE (11:33)
--- NOTE | 2019-04-06 11:36 | GIREPORT ---
[facility] Surgical Services - Endoscopy Department Patient Name: Jonelle Hernandez Procedure Date: 04/06/2019 10:35 AM Patient Type: Inpatient Attending MD/ ER Physician: Ethan Bond MD Procedure: Upper GI endoscopy Indications: Acute post hemorrhagic anemia, Melena Providers: Ethan Bond MD Medicines: Propofol per Anesthesia Complications: No immediate complications. Description of Procedure: After obtaining informed consent, the endoscope was passed under direct vision. Throughout the procedure, the patient's blood pressure, pulse, and oxygen saturations were monitored continuously. The Endoscope was intro duced through the mouth, and advanced to the second part of duodenum. [facility] GI endoscopy was accomplished without difficulty. The patient tolerated th e procedure well. Findings: The esophagus was normal. Multiple dispersed, small non-bleeding erosions were found in the gastr ic antrum and in the prepyloric region of the stomach. There were no stigm christian of recent bleeding. Patchy moderate inflammation characterized by erosions and erythema was found in the duodenal bulb and in the first portion of the duodenum. The second portion of the duodenum and area of the papilla were normal. Estimated Blood Loss: Estimated blood loss: none. Post Op Diagnosis: - Normal esophagus. - Non-bleeding erosive gastropathy. - Acute duodenitis. - Normal second portion of the duodenum and area of the papilla. - No specimens collected. - The findings are consistent with NSAID injury to the stomach and are likely the source of melena and anemia. Recommendation: - Resume regular diet today. - Use Protonix (pantoprazole) 40 mg PO daily. - No aspirin, ibuprofen, naproxen, or other non-steroidal anti-inflamma tory drugs. - [facility]. - Thank you for allowing me to be involved in the care of your patient. Attending Participation: I personally performed the entire procedure without the assistance of a fellow, resident or surg ical financial services assistant. Ethan Bond MD Ethan Bond MD 04/06/2019 11:36:39 AM This report has been signed electronicallyDavid MD Varun Number of Addenda: 0 Note Initiated On: 04/06/2019 10:35 AM [email or web address]
[2019-04-06] MEDS ORDERED: NALOXONE HCL 0.4 MG/ML INJ IVP PRN (11:43)
[2019-04-06] MEDS ORDERED: fentaNYL 100 MCG/2 ML INJ IVP PRN (11:43)
[2019-04-06] MEDS ORDERED: NS 500 ML IV PRN (11:43)
[2019-04-06] MEDS ORDERED: ONDANSETRON 4 MG/2 ML VIAL IVP PRN (11:43)
--- NOTE | 2019-04-06 11:43 | POSTANESTH ---
Post Anesthetic Evaluation Cardiovascular Status: Normal, Stable Respiratory Status: Similar to Pre-op Cond. Level of Consciousness/Mental Status: Can Participate in Eval Pain Control: Adequate, Prn Tx Ordered Nausea/Vomiting Control: Adequate, Prn Tx Ordered Complications Possibly Related to Anesthesia: None Noted (Some wheezing upon emergence, ordered Albuterol nebulized trmnt.)
[2019-04-06 13:01] VITALS: BP 157/68
--- NOTE | 2019-04-06 13:54 | PDDCSUM ---
Discharge Summary Discharge Summary: DISCHARGE DIAGNOSES: * Acute pyelonephritis with E coli, sensitive * Acute erosive gastritis and duodenitis, likely NSAID induced, endoscopy confirmed * Upper GI bleed due to gastritis with post hemorrhagic anemia * Hepatic steatosis CONSULTANTS: Dr. Ethan Bond PROCEDURES: Esophagogastroduodenoscopy which showed diffuse erosive gastropathy/duodenitis HOSPITAL COURSE SUMMARY: This patient who has a previous history of recurrent pyelonephritis came into the ER with symptoms suggesting pyelonephritis and with notable pyuria. She had actually been seen the day before in an urgent care were culture had showed E coli and she was started on oral antibiotic. She came in here at this time with high fever but no signs of sepsis. She was started on IV antibiotics and her fevers and pyelonephritis symptoms resolved nicely. During her stay here she has had some epigastric discomfort abdominal bloating and melanic stool. She has been taking ibuprofen 2 tablets at bedtime for the past month and she was felt to have NSAID induced upper GI bleed. EGD evaluation showed diffuse erosive gastropathy as well as some duodenitis but no focal ulcers. This was all felt to be the cause of her bleeding. She has remained hemodynamically stable and has not needed transfusion. She has been treated here with Protonix and tolerating that well. She is stable for discharge home at this time. All of her questions have been answered. PENDING TEST RESULTS: None MEDICATION CHANGES: Addition of Keflex for 500 mg three times daily for 2 days Addition of Protonix 40 mg twice daily for a month FOLLOW-UP PLAN: She will see Dr. Miles back in the next 2 weeks for follow-up Greater than 35 minutes bedside and care coordination time today
--- NOTE | 2019-04-06 14:05 | ASMTLACE ---
LACE Length of stay for Answers: 3 days current admission Acuity / Level of Answers: Yes Care: Did the patient have an inpatient admission? Comorbidities - select Answers: Other Notes: HTN; Hypothyroid all that apply # of Emergency department Answers: 1-2 visits in the last 6 months Score: 8 Date Signed: 04/06/2019 02:04 PM Electronically Signed By:Venus Li RN
== END 2019-04-06 14:21 | disposition home or self-care (01) | DRG 689 ==
LOC: F1N 05:13
PROVIDERS: ADMIT Family Medicine; ATTEND Internal Medicine
PROC: 0DJ08ZZ Inspection of Upper Intestinal Tract, Via Natural or Artificial Opening Endoscopic (ICD-10-PCS; principal; 2019-04-06 11:00)
DX: N10 Acute pyelonephritis (principal); B96.20 Unspecified Escherichia coli [E. coli] as the cause of diseases classified elsewhere; K29.01 Acute gastritis with bleeding; T39.395A Adverse effect of other nonsteroidal anti-inflammatory drugs [NSAID], initial encounter; K29.81 Duodenitis with bleeding; D62 Acute posthemorrhagic anemia; E87.6 Hypokalemia; K76.0 Fatty (change of) liver, not elsewhere classified; I10 Essential (primary) hypertension; E03.9 Hypothyroidism, unspecified; Z86.010 Personal history of colon polyps; Z87.440 Personal history of urinary (tract) infections
CPT/HCPCS: 96374; J0696; J1885; J2270; J2405; J2550; J2704; J7613; Q9967